=== PATIENT | female | born 1980 | race Caucasian/White ===

== ENCOUNTER 2019-09-26 11:55 | Emergency (ER) | payer BC, OTHER ==
--- NOTE | 2019-09-26 12:56 | EDM.PDOC ---
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 The patient had fallen and she along with co- workers were using a gait belt to lift this patient. Immediately after this she experienced sharp pain in the back of the right shoulder. She denies weakness or numbness. Denies any pain in back or elsewhere. Treatments [employer] WORK: Reports: Acetaminophen, Other (see below) Other Treatments [employer] WORK: biofreeze Right Shoulder Pain Score (Numeric/FACES): 8 - Related Data Allergies Allergy/AdvReac Type Severity Reaction Status Date / Time ibuprofen Allergy Respiratory Verified 09/26/19 12:04 Depression Home Meds: Home Meds . 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: Musculoskeletal History: Reports: RA Neurological History: Reports: Migraines Psychiatric History: Reports: None Endocrine/Metabolic History: Reports: Obesity/BMI 30+ Hematologic History: Reports: None Oncologic (Cancer) History: Reports: Cervix Dermatologic History: Reports: None - Infectious Disease History Infectious Disease History: Reports: Chicken Pox - Past Surgical History Cardiovascular Surgical History: Reports: None Respiratory Surgical History: Reports: None GI Surgical History: Reports: None Female Surgical History: Reports: Hysterectomy, Salpingo-Oophorectomy, Tubal Ligation Endocrine Surgical History: Reports: None Neurological Surgical History: Reports: None Musculoskeletal Surgical History: Reports: None Dermatological Surgical History: Reports: None Social & Family History - Family History Family Medical History: Noncontributory - Tobacco Use Smoking Status *Q: Current Every Day Smoker Years of Tobacco use: 20 Packs/Tins Daily: 1 - Caffeine Use Caffeine Use: Reports: Energy Drinks - Recreational Drug Use Recreational Drug Use: No ED ROS GENERAL - Review of Systems Review Of Systems: Comprehensive ROS is negative, except as noted in HPI. ED EXAM, GENERAL - Physical Exam Exam: See Below Exam Limited By: No Limitations General Appearance: Alert, WD/WN, No Apparent Distress Eye Exam: Bilateral Eye: EOMI, Normal Inspection, PERRL Ears: Normal External Exam, Hearing Grossly Normal Nose: Normal Inspection, No Blood Throat/Mouth: Normal Inspection, Normal Lips, Normal Voice, No Airway Compromise Head: Atraumatic, Normocephalic Neck: Normal Inspection, Supple, Non-Tender, Full Range of Motion Respiratory/Chest: No Respiratory Distress, Lungs Clear, Normal Breath Sounds, No Accessory Muscle Use Cardiovascular: Regular Rate, Rhythm, No Murmur Back Exam: Normal Inspection, Full Range of Motion. No: Paraspinal Tenderness, Vertebral Tenderness Extremities: Normal Inspection (except CC), Normal Range of Motion (with some pain in shoulder and slow, deliberate movement of RUE ), Other (ROM is good and distal to shoulder exam is normal. Palpation is tender of muscle group from acromion nearly to thoracic spine most acute over the scapula. No evidence of bony tenderness or pathology.) Neurological: Alert, Oriented, Normal Cognition, No Motor/Sensory Deficits Psychiatric: Normal Affect, Normal Mood Skin Exam: Warm, Dry, Intact, Normal Color, No Rash Course - Vital Signs Last Recorded V/S: Last Vital Signs Temp 96.5 F 09/26/19 12:00 Pulse 75 09/26/19 12:00 Resp 18 09/26/19 12:00 BP 118/74 09/26/19 12:00 Pulse Ox 99 09/26/19 12:00 - Re-Assessments/Exams Free Text/Narrative Re-Assessment/Exam: 09/26/19 13:51 Xrays show no evidence of acute pathology. Discussed findings and recommendations with patient. She says she will avoid Ibuprofen as she is allergic to it. Discharged to home in stable condition. Departure - Departure Time of Disposition: 13:54 Disposition: Home, Self-Care 01 Condition: Good Clinical Impression: Work related injury Muscle strain of right scapular region Qualifiers: Encounter type: initial encounter Qualified Code(s): S46.911A - Strain of unspecified muscle, fascia and tendon at shoulder and upper arm level, right arm , initial encounter - Discharge Information Instructions: Muscle Strain, [id number] Forms: ED Department Discharge, ED Return to Work/School Form Additional Instructions: 1. Avoid activities that cause or exacerbate the pain. 2. You can use the sling as needed for support and comfort. 3. You can take Ibuprofen or Tylenol as directed for pain control if needed. 4. Follow up with your PCP if not improving in 7-10 days.
--- NOTE | 2019-09-26 13:40 | CR ---
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 DISCUSSION: Mild acromioclavicular osteoarthritis. No fracture or dislocation is identified. IMPRESSION: 1. Mild acromioclavicular osteoarthritis. Christoph Vaughan MD 09/26/19 [id number] Thank you for allowing us to participate in the care of your patient.
== END 2019-09-26 14:15 | disposition home or self-care (01) ==
LOC: KA.ED 11:55
DX: S46.911A Strain of unspecified muscle, fascia and tendon at shoulder and upper arm level, right arm, initial encounter (principal); M06.9 Rheumatoid arthritis, unspecified; E66.9 Obesity, unspecified; Z68.31 Body mass index [BMI] 31.0-31.9, adult; F17.210 Nicotine dependence, cigarettes, uncomplicated; Z88.8 Allergy status to other drugs, medicaments and biological substances; X50.0XXA Overexertion from strenuous movement or load, initial encounter; Y99.0 Civilian activity done for income or pay
CPT/HCPCS: 73030-RT; 99283-25

== ENCOUNTER 2021-08-12 15:29 | Emergency (ER) | payer BC ==
[2021-08-12] MEDS ORDERED: traMADol 50 MG Tab PO ONE (15:59)
[2021-08-12] MEDS ORDERED: Amoxicillin 500 MG Cap PO ONE (16:01)
--- NOTE | 2021-08-12 16:03 | EDM.PDOC ---
ED HPI GENERAL MEDICAL PROBLEM - General Chief Complaint: General Stated Complaint: TOOTH INFECTION Time Seen by Provider: 08/12/21 15:35 Source of Information: Reports: Patient History Limitations: Reports: No Limitations - History of Present Illness INITIAL COMMENTS - FREE TEXT/NARRATIVE: 41 YO WF PRESENTS TO ER WITH DENTAL PAIN WHICH STARTED 2 DAYS AGO. PT REPORTS SHE HAS UPPER DENTURES AND MULTIPLE DENTAL CARIES AND HAS HAD THESE SYMPTOMS BEFORE IN THE PAST. PT DENIES SWELLING OR DRAINAGE. PT DENIES FEVER/CHILLS. PT COMPLAINING OF PAIN TO RIGHT #26 INCISOR. Onset Date: 08/10/21 Duration: Day(s): (2) Quality: Reports: Ache Severity: Mild Improves with: Reports: None Worsens with: Reports: None Associated Symptoms: Reports: No Other Symptoms Right Lower Tooth/Teeth Pain Score (Numeric/FACES): 5 - Related Data Allergies Allergy/AdvReac Type Severity Reaction Status Date / Time ibuprofen Allergy Respiratory Verified 08/12/21 15:44 Depression Home Meds: Home Meds Amoxicillin [Amoxil] 875 mg PO Q12HR #10 tab 08/12/21 [Rx] Past Medical History HEENT History: Reports: Impaired Vision Cardiovascular History: Reports: None Respiratory History: Reports: None Gastrointestinal History: Reports: None Genitourinary History: Reports: None 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: Musculoskeletal History: Reports: RA Neurological History: Reports: Migraines Psychiatric History: Reports: None Endocrine/Metabolic History: Reports: Obesity/BMI 30+ Hematologic History: Reports: None Oncologic (Cancer) History: Reports: Cervix Dermatologic History: Reports: None - Infectious Disease History Infectious Disease History: Reports: Chicken Pox - Past Surgical History Cardiovascular Surgical History: Reports: None Respiratory Surgical History: Reports: None GI Surgical History: Reports: None Female Surgical History: Reports: Hysterectomy, Salpingo-Oophorectomy, Tubal Ligation Endocrine Surgical History: Reports: None Neurological Surgical History: Reports: None Musculoskeletal Surgical History: Reports: None Dermatological Surgical History: Reports: None Social & Family History - Family History Family Medical History: No Pertinent Family History - Caffeine Use Caffeine Use: Reports: Coffee ED ROS GENERAL - Review of Systems Review Of Systems: See Below Constitutional: Reports: No Symptoms HEENT: Reports: Dental Pain Respiratory: Reports: No Symptoms Cardiovascular: Reports: No Symptoms Endocrine: Reports: No Symptoms GI/Abdominal: Reports: No Symptoms : Reports: No Symptoms Musculoskeletal: Reports: No Symptoms Skin: Reports: No Symptoms Neurological: Reports: No Symptoms Psychiatric: Reports: No Symptoms Hematologic/Lymphatic: Reports: No Symptoms Immunologic: Reports: No Symptoms ED EXAM, GENERAL - Physical Exam Exam: See Below Exam Limited By: No Limitations General Appearance: Alert, WD/WN, No Apparent Distress Throat/Mouth: Normal Lips, Normal Gums, Normal Oropharynx, Normal Voice, No Airway Compromise, Other (MULTIPLE DENTAL CARIES). No: Normal Teeth Head: Atraumatic, Normocephalic Neck: Normal Inspection, Supple, Non-Tender, Full Range of Motion Respiratory/Chest: No Respiratory Distress, Lungs Clear, Normal Breath Sounds, No Accessory Muscle Use, Chest Non-Tender Cardiovascular: Normal Peripheral Pulses, Regular Rate, Rhythm, No Edema, No Gallop, No JVD, No Murmur, No Rub GI/Abdominal: Normal Bowel Sounds, Soft, Non-Tender, No Organomegaly, No Distention, No Abnormal Bruit, No Mass Back Exam: Normal Inspection, Full Range of Motion, NT Extremities: Normal Inspection, Normal Range of Motion, Non-Tender, Normal Capillary Refill, No Pedal Edema Neurological: Alert, Oriented, CN II-XII Intact, Normal Cognition, Normal Gait, No Motor/Sensory Deficits Psychiatric: Normal Affect, Normal Mood Skin Exam: Warm, Dry, Intact, Normal Color, No Rash Course - Vital Signs Last Recorded V/S: Last Vital Signs Temp 96.0 F L 08/12/21 15:39 Pulse 75 08/12/21 15:39 Resp 20 08/12/21 15:39 BP 118/81 08/12/21 15:39 Pulse Ox 98 08/12/21 15:39 Departure - Departure Time of Disposition: 16:05 Disposition: Home, Self-Care 01 Condition: Good Clinical Impression: Pain due to dental caries - Discharge Information Prescriptions: Amoxicillin [Amoxil] 875 mg PO Q12HR #10 tab Instructions: Dental Caries, Adult Referrals: Alice Nicloas MD [Primary Care Provider] - Additional Instructions: 1. MULTIPLE DENTAL CARIES WITH PAIN TO #26 RIGHT INCISOR 2. TYLENOL 1000MG EVERY 6 HOURS ALTERNATE WITH- 3. ULTRAM 100MG (2 TABLETS) EVERY 6 HOURS NEEDED FOR PAIN 4. HYDROGEN PEROXIDE ORAL RINSE 5. FOLLOW UP WITH DENTIST NEEDED 6. RETURN TO ER FOR WORSENING SYMPTOMS Sepsis Event Note (ED) - Evaluation Sepsis Screening Result: No Definite Risk - Focused Exam Vital Signs: Vital Signs Temp Pulse Resp BP Pulse Ox 08/12/21 15:39 96.0 F L 75 20 118/81 98 - Assessment/Plan Assessment:: 1. MULTIPLE DENTAL CARIES WITH PAIN TO #26 RIGHT INCISOR 2. TYLENOL 1000MG EVERY 6 HOURS ALTERNATE WITH- 3. ULTRAM 100MG (2 TABLETS) EVERY 6 HOURS NEEDED FOR PAIN 4. HYDROGEN PEROXIDE ORAL RINSE 5. FOLLOW UP WITH DENTIST NEEDED 6. RETURN TO ER FOR WORSENING SYMPTOMS
== END 2021-08-12 16:15 | disposition home or self-care (01) ==
LOC: KA.ED 15:29
DX: K02.9 Dental caries, unspecified (principal); E66.9 Obesity, unspecified; Z68.28 Body mass index [BMI] 28.0-28.9, adult
CPT/HCPCS: 99282; A9270-GY